=== PATIENT | male | born 1960 | race Caucasian/White ===

== ENCOUNTER → 2018-02-13 | Outpatient (CLI) | payer BC | END | disposition home or self-care (01) | LOC: KCIC US 12:57 | DX: N17.9 Acute kidney failure, unspecified (principal); E11.9 Type 2 diabetes mellitus without complications; I10 Essential (primary) hypertension; F17.210 Nicotine dependence, cigarettes, uncomplicated | CPT/HCPCS: 76770 ==

== ENCOUNTER → 2020-01-02 | Outpatient (CLI) | payer BC ==
[2019-08-30 11:00] VITALS: BP 140/86
[~2020-01-02] MED LIST: ACET-704 PO; ASPI-482 PO; CANA300T PO; CHOL500016 PO; CYCL10TA2 PO; GLYB2.5T2 PO; LISI-130 PO; METF850T8 PO; OMEG1CAP65 PO; OMEP20TA8 PO; PRAM0.25 PO; PRAV40TA2 PO
--- NOTE | 2020-01-02 08:05 | RAD ---
ABDOMEN COMPLETE History: Upper abdominal pain. Comparison: None. Technique: Sonographic examination of the abdomen was performed and multiple grayscale and color Doppler static images were obtained. Findings: Liver demonstrates increased echogenicity. The liver measures 18.9 cm. Portal flow is patent. Common bile duct measures 6 mm in diameter. Gallbladder wall is normal. No cholelithiasis or pericholecystic fluid. Visualized pancreas is homogeneous. The right kidney measures 11.9 x 5.6 x 6.8 cm. No hydronephrosis. The left kidney measures 12.0 x 4.9 x 6.6 cm. No hydronephrosis. The spleen measures 13.6 cm. Aorta and IVC not well seen due to overlying bowel gas. IMPRESSION: 1. Hepatomegaly with increased echotexture, may indicate steatosis. 2. Mild splenomegaly. Electronically signed by: Gorge Pearce DO (01/02/2020 8:02 AM) [id number]
== END | disposition home or self-care (01) ==
LOC: US 09:26
PROVIDERS: ATTEND Family Medicine
DX: K76.0 Fatty (change of) liver, not elsewhere classified (principal); R16.2 Hepatomegaly with splenomegaly, not elsewhere classified
CPT/HCPCS: 76700